=== PATIENT | female | born 1960 | race Caucasian/White ===

== ENCOUNTER 2016-07-19 05:59 | Emergency (ER) | payer OTHER ==
[2016-07-19] MEDS ORDERED: IBUPROFEN 600 MG TAB PO STA (06:18)
--- NOTE | 2016-07-19 06:57 | XR ---
EXAM: XR Left Ankle Complete, 3 or More Views. CLINICAL HISTORY: Reason: Pain TECHNIQUE: Frontal, lateral and oblique views of the left ankle. COMPARISON: No relevant prior studies available. FINDINGS: Bones: There is no evidence of acute fracture. Well corticated ossicle inferior to the lateral malleolus may represent an old avulsion fracture or calcific tendinopathy. Joints: No dislocation. The ankle mortise is preserved. Soft tissues: Mild lateral malleolar soft tissue swelling. IMPRESSION: No evidence of acute fracture or dislocation.
--- NOTE | 2016-07-19 07:01 | XR ---
EXAM: XR Left Foot Complete, 3 or More Views. CLINICAL HISTORY: Reason: Pain TECHNIQUE: Frontal, lateral and oblique views of the left foot. COMPARISON: No relevant prior studies available. FINDINGS: Bones: Questional nondisplaced fracture at the base of the fifth metatarsal. Otherwise no evidence of acute fracture. Joints: Moderate subluxation of the fifth proximal interphalangeal joint. Otherwise no evidence of dislocation. Soft tissues: Mild soft tissue swelling seen along the lateral aspect of the midfoot. IMPRESSION: Questionable nondisplaced fracture of the base of the left fifth metatarsal. Please correlate with mechanism of trauma and site of maximal tenderness.
--- NOTE | 2016-07-19 07:22 | ED ---
Lower Extremity Injury HPI - General Chief Complaint: Extremity Injury, Lower Stated Complaint: Left foot Injury Time Seen by Provider: 07/19/16 06:18 Source: patient Mode of arrival: ambulatory Limitations: no limitations - History of Present Illness Initial Comments: This patient is a 55-year-old woman who states that she got up out of bed around 4 this morning to use the bathroom. She believes that she accidentally inverted her ankle in the dark. She states that she felt a pop and she is having pain in the lateral aspect of her foot. She denies previous ankle or foot injury. She states that the pain is constant, but worse with walking on it. The pain is sharp, mild but becomes severe with weightbearing. She denies any loss of sensation throughout the foot. MD Complaint: foot injury -: hour(s) Injury: Foot: Left Type of Injury: inversion Place: home Severity: moderate Improves With: rest Worsens With: weight bearing Context: walking Associated Symptoms: snap/pop sensation - Related Data Previous Rx's Medication Instructions Recorded Hydrocodone/Acetaminophen [[place] 1 each PO Q6HR PRN #20 tab 07/19/16 5-325] Allergies Allergy/AdvReac Type Severity Reaction Status Date / Time Sulfa (Sulfonamide Allergy Rash/Hives Verified 07/19/16 06:03 Antibiotics) Review of Systems ROS Statement: Those systems with pertinent positive or pertinent negative responses have been documented in the HPI. ROS Other: All systems not noted in ROS Statement are negative. Constitutional: Denies: weakness Musculoskeletal: Reports: as per HPI, joint swelling, arthralgia Skin: Denies: lesions Neurological: Denies: weakness, numbness, paresthesias Past Medical History Past Medical History: No Reported History History of Any Multi-Drug Resistant Organisms: None Reported Past Surgical History: Orthopedic Surgery Additional Past Surgical History / Comment(s): 2 left foot surgeries, bone spur Past Psychological History: No Psychological Hx Reported Smoking Status: Current some day smoker Past Alcohol Use History: Occasional Past Drug Use History: None Reported General Exam Limitations: no limitations General appearance: alert, in no apparent distress Cardiovascular Exam: Present: other (Normal dorsalis pedis pulse and strong capillary refill.) Extremities exam: Present: tenderness, normal capillary refill, joint swelling, other (There is swelling to the dorsal lateral aspect of the foot area there is marked tenderness to palpation near the base of the fifth metatarsal. There is no obvious deformity. There is normal neurovascular function throughout the foot) Neurological exam: Absent: motor sensory deficit Skin exam: Present: warm, dry, intact, normal color. Absent: rash Course Vital Signs 07/19/16 06:03 Temperature 97.6 F Pulse Rate 83 Respiratory 18 Rate Blood Pressure 116/89 O2 Sat by Pulse 99 Oximetry Disposition Clinical Impression: Fracture of foot Disposition: HOME SELF-CARE Condition: Fair Instructions: Foot Fracture in Adults (ED) Prescriptions: Hydrocodone/Acetaminophen [[place] 5-325] 1 each PO Q6HR PRN #20 tab PRN Reason: Pain Referrals: Angle Patrick DO [Primary Care Provider] - 1-2 days Mikel Rosenthal MD [STAFF PHYSICIAN] - 1-2 days
[2016-07-19] MEDS ORDERED: HYDROcodone/APAP 5-325MG 1 EACH TAB PO STA (07:23)
[2016-07-19 07:59] VITALS: BP 118/87; PULSE 80; RESP 16; TEMP 97.2
== END 2016-07-19 07:57 | disposition home or self-care (01) ==
LOC: EDBD → EC 05:59
DX: S92.355A Nondisplaced fracture of fifth metatarsal bone, left foot, initial encounter for closed fracture (principal); F17.200 Nicotine dependence, unspecified, uncomplicated; Z88.2 Allergy status to sulfonamides; Z98.890 Other specified postprocedural states; X50.9XXA Other and unspecified overexertion or strenuous movements or postures, initial encounter; Y92.009 Unspecified place in unspecified non-institutional (private) residence as the place of occurrence of the external cause
CPT/HCPCS: 99283